=== PATIENT | female | born 1960 | race Caucasian/White ===

== ENCOUNTER 2017-08-23 10:17 | Emergency (ER) | payer OTHER ==
[2017-08-23] MEDS ORDERED: NS 1,000 ML IV ONE ×2 (10:41→10:46)
[2017-08-23] MEDS ORDERED: ONDANSETRON 4 MG/2 ML VIAL IVP ONE (10:41)
[2017-08-23] MEDS ORDERED: HYDROmorphONE/DILAUDID 1 MG/ML INJ IVP ONE ×2 (10:41→11:20)
--- NOTE | 2017-08-23 10:51 | EDPHY ---
H & P Time Seen by Provider: 08/23/17 10:41 HPI/ROS: CHIEF COMPLAINT: Left flank and abdominal pain HISTORY OF PRESENT ILLNESS: Relatively sudden onset at 6:00 a.m. associated with urinary urgency. Left flank radiating to the left anterior abdomen. Symptoms are severe and not affected by position. Associated with nausea and vomiting. REVIEW OF SYSTEMS: Eye: no change in vision ENT: no sore throat Cardiac: no chest pain or syncope Pulmonary: no cough or SOB Abdomen: HPI Musculoskeletal: Left flank pain as noted above Skin: no rash Neuro: no headache Constitutional: no fever : no urinary symptoms A comprehensive 10 point review of systems is otherwise negative aside from elements mentioned in the history of present illness. 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 ENT, Mouth: Normal mucous membranes. Respiratory: Normal respiratory effort, breath sounds equal, lungs are clear to auscultation. Cardiovascular: Regular rate and rhythm. Gastrointestinal: Abdomen is soft and non tender. Neurological: Alert and oriented x3. Normally conversant. Face symmetric, normal movement and sensation in all extremities. Skin: Warm and dry, no rashes. No zoster Musculoskeletal: No peripheral edema and no joint swelling. Psychiatric: Not agitated. Emergency Department course/MDM: Dilaudid 1 mg IV, urine dip and noncontrast CT scanning discussed and consented. Additional 1 mg Dilaudid IV. 1230: CT shows left UVJ stone with hydronephrosis maximum diameter 4 mm per Finer, discussed with patient at this time and CT reviewed on the computer system. She feels much better and essentially is asymptomatic. Plan for discharge of urine does not show evidence of infection. Urine dip positive for blood but negative for infection. Smoking Status: Never smoked Constitutional: Initial Vital Signs Temperature (C) 36 C 08/23/17 10:27 Heart Rate 70 08/23/17 10:27 Respiratory Rate 16 08/23/17 10:27 Blood Pressure 146/86 H 08/23/17 10:27 O2 Sat (%) 100 08/23/17 10:27 O2 Delivery Mode Room Air Allergies/Adverse Reactions: No Known Allergies Allergy (Unverified 08/23/17 10:30) Home Medications: Medication Instructions Recorded oxyCODONE/APAP 5/325 [Percocet] 1 - 2 tab PO Q4-6PRN PRN #11 tab 08/23/17 Medical Decision Making - Diagnostics Imaging Results: Imaging Impressions Abdomen/Pelvis CT 08/23/17 10:46 Impression: 1. Mild to moderate left-sided hydronephrosis secondary to a 3.5 x 2.5 mm calculus at the left UVJ. 2. No significant abnormality otherwise identified within the abdomen and pelvis. Attention: This CT examination is specifically designed to evaluate patients who are clinically suspected of having acute obstructive uropathy. This examination does not use radiographic contrast, and as such, provides only a limited evaluation of the abdomen, pelvis and retroperitoneum. If there is further clinical suspicion for pathological conditions other than obstructive uropathy, a complete CT evaluation of the abdomen and pelvis utilizing intravenous, oral, and rectal contrast should be considered. Findings discussed with Chriss Rjoas M.D. at 12:13 hour, 08/23/2017. Differential Diagnosis: Differential diagnosis considered for flank pain including but not limited to musculoskeletal causes, kidney stone, pyelonephritis, shingles, and intra- abdominal causes such as diverticulitis and appendicitis. - Data Points Medications Given: Discontinued Medications Hydromorphone HCl (Dilaudid) 1 mg IVP EDNOW ONE Stop: 08/23/17 10:42 Last Admin: 08/23/17 10:44 Dose: 1 mg Hydromorphone HCl (Dilaudid) 1 mg IVP EDNOW ONE Stop: 08/23/17 11:21 Last Admin: 08/23/17 11:24 Dose: 1 mg Sodium Chloride (Ns) 1,000 mls @ 0 mls/hr IV ONCE ONE PRN Reason: Wide Open Stop: 08/23/17 10:42 Last Admin: 08/23/17 10:45 Dose: 1,000 mls Sodium Chloride (Ns) 1,000 mls @ 0 mls/hr IV EDNOW ONE; Wide Open PRN Reason: Protocol Stop: 08/23/17 10:47 Last Admin: 08/23/17 11:26 Dose: 1,000 mls Ondansetron HCl (Zofran) 4 mg IVP EDNOW ONE Stop: 08/23/17 10:42 Last Admin: 08/23/17 10:44 Dose: 4 mg Ondansetron HCl (Zofran Odt 4 Mg Prepack#2) 1 btl MARILY CHRISTIANSON ONE Stop: 08/23/17 13:03 Last Admin: 08/23/17 13:06 Dose: 1 btl Departure - Departure Disposition: Home, Routine, Self-Care Clinical Impression: Renal colic on left side Condition: Good Instructions: Ondansetron (By mouth), Renal Colic (ED) Additional Instructions: Oral ibuprofen 600 mg every 8 hours for the next 48 hours. Return for recurrence symptoms not controlled by pain medications. Strain urine and bring any stone you find to primary care physician. Referrals: Nubia Yee MD [Primary Care Provider] - As per Instructions Prescriptions: oxyCODONE/APAP 5/325 [Percocet] 1 - 2 tab PO Q4-6PRN PRN #11 tab PRN Reason: Pain
[2017-08-23 11:29] VITALS: RESP 20
[2017-08-23 12:47] VITALS: BP 115/63; PULSE 68; TEMP 98.2; O2SAT 92
[2017-08-23] MEDS ORDERED: ONDANSETRON 4MG PREPACK#2 BTL TAKEHOME ONE (13:02)
== END 2017-08-23 13:10 | disposition home or self-care (01) ==
PROC: 3E0337Z Introduction of Electrolytic and Water Balance Substance into Peripheral Vein, Percutaneous Approach (ICD-10-PCS; principal; 2017-08-23)
DX: N23 Unspecified renal colic (principal); E86.9 Volume depletion, unspecified
CPT/HCPCS: 96374; J1170; J2405